=== PATIENT | female | born 1955 | race Caucasian/White ===

== ENCOUNTER 2018-01-16 11:06 | Inpatient (IN) | payer MEDICAID ==
[~2018-01-16] VITALS: Ht 157.5 cm; Wt 69.3 kg
[2018-01-16 11:43] LABS: INTERNATIONAL NORMALIZED RATIO 1.71 (0.93-1.1); PROTHROMBIN TIME 17.6 Seconds (9.6-11.5)
[2018-01-16 11:45] LABS: ALANINE AMINOTRANSFERASE 75 U/L (12-78); ALBUMIN 2.1 g/dL (3.4-5.0); ANION GAP 7 mmol/L (5-15); CALCIUM 7.7 mg/dL (8.5-10.1); CHLORIDE 103 mmol/L (98-107)
[2018-01-16 11:50] LABS: ALKALINE PHOSPHATASE 153 U/L (45-117); BILIRUBIN,TOTAL 4.6 mg/dL (0.2-1.0); CREATININE 0.39 mg/dL (0.55-1.02); TROPONIN I < 0.015 ng/mL (0.000-0.045)
[2018-01-16 11:56] LABS: BASOPHILS # (AUTO) 0.01 x10^3/uL (0-0.1); BASOPHILS % (AUTO) 0 % (0-1); EOSINOPHILS # (AUTO) 0.12 x10^3/uL (0-0.4); EOSINOPHILS % (AUTO) 3 % (1-7); LYMPHOCYTES # (AUTO) 0.83 x10^3/uL (1-3.4); LYMPHOCYTES % (AUTO) 23 % (22-44); MD SCAN; MEAN CORPUSCULAR HEMOGLOBIN 42.2 pg (27.0-34.8); MEAN CORPUSCULAR HGB CONC 33.9 g/dL (32.4-35.8); MEAN CORPUSCULAR VOLUME 124.5 fL (80-100); MEAN PLATELET VOLUME 8.5 fL (7.4-10.4); MONOCYTES # (AUTO) 0.56 x10^3/uL (0.2-0.8); MONOCYTES % (AUTO) 15 % (2-9); NEUTROPHILS # (AUTO) 2.17 x10^3/uL (1.8-6.8); NEUTROPHILS % (AUTO) 59 % (42-75); PLATELET COUNT 51 x10^3/uL (130-400); RED BLOOD COUNT 3.14 x10^6/uL (3.82-5.3); RED CELL DISTRIBUTION WIDTH 17.6 % (9.6-15.2)
[2018-01-16] MEDS ORDERED: FUROSEMIDE 40 MG/4 ML IV ONE (12:00)
[2018-01-16] MEDS ORDERED: FUROSEMIDE 40 MG/4 ML ONE (12:07)
[2018-01-16] MEDS ORDERED: PLEASE ENTER ALLERGIES MC SCH (12:30)
[2018-01-16] MEDS ORDERED: HYDR-3240 PO (13:52)
[2018-01-16] MEDS ORDERED: TRAZ50TA18 PO (13:52)
[2018-01-16] MEDS ORDERED: MONT10TA9 PO (13:52)
[2018-01-16] MEDS ORDERED: SOY1TABL2 PO (13:52)
[2018-01-16] MEDS ORDERED: COLE1TAB2 PO (13:52)
[2018-01-16] MEDS ORDERED: FURO-93 PO (13:52)
[2018-01-16] MEDS ORDERED: POT25TAB PO (13:52)
[2018-01-16] MEDS ORDERED: PANT40TA5 PO (13:52)
[2018-01-16] MEDS ORDERED: ALBU8.5H8 INH (13:52)
[2018-01-16 14:12] VITALS: BP 147/76
[2018-01-16] MEDS ORDERED: LABETALOL 5MG/ML, 20ML IVPush PRN (16:00)
[2018-01-16] MEDS ORDERED: ONDANSETRON ODT 4 MG PO PRN (16:00)
[2018-01-16] MEDS ORDERED: POLYETHYLENE GLYCOL 17 GM PACKET PO PRN (16:00)
[2018-01-16] MEDS ORDERED: HEPARIN 5,000 UNITS/ML, 1ML SQ SCH (16:00)
[2018-01-16] MEDS ORDERED: ONDANSETRON 2MG/ML, 2ML IVPush PRN (16:00)
[2018-01-16] MEDS ORDERED: POTASSIUM CHLORIDE 20 MEQ TAB.ER.PRT PO ONE ×2 (16:30→22:00)
[2018-01-16] MEDS ORDERED: LACTULOSE 20 GM/30 ML UDC PO PRN (16:30)
[2018-01-16] MEDS: ALBUTEROL SULFATE 2.5 MG/3 ML NPPB SCH ×2 (16:30→20:40)
[2018-01-16] MEDS: methylPREDNISolone SOD SUCC 125 MG/2 ML IVPush SCH (17:51)
[2018-01-16] MEDS: FUROSEMIDE 20 MG/2 ML IV SCH (17:51)
[2018-01-16] MEDS ORDERED: ALBUTEROL/IPRATROPIUM 2.5MG/0.5MG, 3 ML NPPB PRN (18:00)
[2018-01-16 18:03] LABS: TROPONIN I < 0.015 ng/mL (0.000-0.045)
[2018-01-16 18:19] LABS: MEAN CORPUSCULAR HGB CONC 33.6 g/dL (32.4-35.8); MEAN CORPUSCULAR VOLUME 124.8 fL (80-100); MEAN PLATELET VOLUME 8.1 fL (7.4-10.4); RED BLOOD COUNT 3.17 x10^6/uL (3.82-5.3); RED CELL DISTRIBUTION WIDTH 17.5 % (9.6-15.2)
[2018-01-16 18:20] LABS: MD YES
[2018-01-16 18:23] LABS: EOS#(MANUAL) 0.17 x10^3/uL (0.0-0.4); EOS% (MANUAL) 4 % (1-7); LYMPH#(MANUAL) 0.76 x10^3/uL (1-3.4); LYMPHS% (MANUAL) 18 % (22-44); MONOS% (MANUAL) 12 % (2-9); SEG#(MANUAL) 2.77 x10^3/uL (1.8-6.8); SEGS% (MANUAL) 66 % (42-75)
[2018-01-16 18:24] LABS: <PLATELET ESTIMATE> DECREASED; <PLT MORPHOLOGY> NORMAL PLT MORPH; ANISOCYTOSIS 1+; POLYCHROMASIA 1+
[2018-01-16 18:29] LABS: PLATELET COUNT 49 x10^3/uL (130-400)
[2018-01-16 19:00] LABS: % IRON SATURATION 82 % (20-55); IRON LEVEL 156 mcg/dL (50-170); TOTAL IRON BINDING CAPACITY 191 mcg/dL (250-450)
[2018-01-16 19:04] LABS: FREE T4 (FREE THYROXINE) 1.17 ng/dL (0.76-1.46); TROPONIN I < 0.015 ng/mL (0.000-0.045)
[2018-01-16 19:10] VITALS: BP 126/78
[2018-01-16 19:25] LABS: FOLATE LEVEL 13.6 ng/mL (3.1-17.5)
[2018-01-16] MEDS: TRAZODONE 50MG TABLET PO SCH (20:22)
[2018-01-16] MEDS: COLESTIPOL 1 GM TABLET PO SCH (20:30)
[2018-01-16] MEDS ORDERED: MAGNESIUM SULFATE IN WATER 50 ML IV ONE (21:30)
[2018-01-16] MEDS ORDERED: PRAV20TA2 PO (22:00)
[2018-01-16] MEDS ORDERED: CARV12.52 PO (22:00)
[2018-01-17] MEDS: methylPREDNISolone SOD SUCC 125 MG/2 ML IVPush SCH ×5 (00:08→23:45)
[2018-01-17 00:12] LABS: TROPONIN I < 0.015 ng/mL (0.000-0.045)
[2018-01-17 03:40] VITALS: BP 116/60
[2018-01-17 05:34] LABS: CHLORIDE 104 mmol/L (98-107)
[2018-01-17 05:43] LABS: ALANINE AMINOTRANSFERASE 68 U/L (12-78); ALKALINE PHOSPHATASE 113 U/L (45-117); ANION GAP 6 mmol/L (5-15); BILIRUBIN,TOTAL 4.9 mg/dL (0.2-1.0); CALCIUM 8.1 mg/dL (8.5-10.1); CREATININE 0.36 mg/dL (0.55-1.02); TOTAL PROTEIN 5.8 g/dL (6.4-8.2)
[2018-01-17 06:36] VITALS: BP 158/81
[2018-01-17] MEDS: ALBUTEROL SULFATE 2.5 MG/3 ML NPPB SCH ×2 (07:52→19:05)
[2018-01-17] MEDS ORDERED: REGADENOSON 0.4 MG/5 ML SYRINGE ONE (08:54)
[2018-01-17] MEDS: SENNA/DOCUSATE TABLET PO SCH (09:00)
[2018-01-17] MEDS ORDERED: [UNRECOGNIZED DRUG - OTHER] PO SCH (09:00)
[2018-01-17] MEDS ORDERED: ALBUTEROL SULFATE 2.5 MG/3 ML NPPB SCH (09:00)
[2018-01-17 12:55] VITALS: BP 145/80
[2018-01-17] MEDS: FUROSEMIDE 20 MG/2 ML IV SCH ×2 (13:30→19:52)
[2018-01-17] MEDS: COLESTIPOL 1 GM TABLET PO SCH ×2 (13:30→19:51)
[2018-01-17] MEDS: MONTELUKAST 10 MG TABLET PO SCH (13:31)
[2018-01-17] MEDS: PANTOPROZOLE 40MG TABLET PO SCH (13:31)
[2018-01-17] MEDS: LACTULOSE 20 GM/30 ML UDC PO SCH ×2 (16:34→19:53)
[2018-01-17] MEDS: HYDROcodone/APAP 5/325 TABLET PO PRN ×2 (17:31→22:17)
[2018-01-17 19:37] VITALS: BP 146/77
[2018-01-17] MEDS: TRAZODONE 50MG TABLET PO SCH (19:52)
[2018-01-17] MEDS: RIFAXIMIN 550 MG TABLET PO SCH (19:53)
[2018-01-18 02:22] VITALS: BP 119/62
[2018-01-18 05:16] LABS: ALANINE AMINOTRANSFERASE 65 U/L (12-78); ANION GAP 7 mmol/L (5-15); CALCIUM 7.9 mg/dL (8.5-10.1); CHLORIDE 101 mmol/L (98-107); CREATININE 0.57 mg/dL (0.55-1.02)
[2018-01-18 05:19] LABS: ALKALINE PHOSPHATASE 130 U/L (45-117); BILIRUBIN,TOTAL 3.9 mg/dL (0.2-1.0); TOTAL PROTEIN 5.7 g/dL (6.4-8.2)
[2018-01-18] MEDS: methylPREDNISolone SOD SUCC 125 MG/2 ML IVPush SCH (05:37)
[2018-01-18 05:50] LABS: MEAN CORPUSCULAR HEMOGLOBIN 41.6 pg (27.0-34.8); MEAN CORPUSCULAR HGB CONC 33.5 g/dL (32.4-35.8); MEAN CORPUSCULAR VOLUME 124.1 fL (80-100); MEAN PLATELET VOLUME 8.6 fL (7.4-10.4); RED BLOOD COUNT 2.94 x10^6/uL (3.82-5.3)
[2018-01-18 05:52] LABS: PLATELET COUNT 49 x10^3/uL (130-400)
[2018-01-18 05:53] LABS: BASOPHILS # (AUTO) 0.01 x10^3/uL (0-0.1); BASOPHILS % (AUTO) 0 % (0-1); EOSINOPHILS % (AUTO) 0 % (1-7); LYMPHOCYTES # (AUTO) 0.56 x10^3/uL (1-3.4); LYMPHOCYTES % (AUTO) 9 % (22-44); MD SCAN; MONOCYTES # (AUTO) 0.31 x10^3/uL (0.2-0.8); MONOCYTES % (AUTO) 5 % (2-9); NEUTROPHILS # (AUTO) 5.45 x10^3/uL (1.8-6.8); NEUTROPHILS % (AUTO) 86 % (42-75)
[2018-01-18] MEDS ORDERED: POTASSIUM CHLORIDE 20 MEQ TAB.ER.PRT PO ONE ×2 (07:00)
[2018-01-18] MEDS: ALBUTEROL SULFATE 2.5 MG/3 ML NPPB SCH ×2 (07:25→20:44)
[2018-01-18 07:30] VITALS: BP 134/75
[2018-01-18] MEDS: LACTULOSE 20 GM/30 ML UDC PO SCH ×3 (08:56→20:30)
[2018-01-18] MEDS: PANTOPROZOLE 40MG TABLET PO SCH (08:57)
[2018-01-18] MEDS: FUROSEMIDE 20 MG/2 ML IV SCH ×2 (08:57→20:30)
[2018-01-18] MEDS: HYDROcodone/APAP 5/325 TABLET PO PRN ×3 (08:57→20:38)
[2018-01-18] MEDS: RIFAXIMIN 550 MG TABLET PO SCH ×2 (08:58→20:30)
[2018-01-18] MEDS: MONTELUKAST 10 MG TABLET PO SCH (08:58)
[2018-01-18] MEDS: COLESTIPOL 1 GM TABLET PO SCH ×2 (08:58→20:30)
[2018-01-18] MEDS: SPIRONOLACTONE 50 MG TABLET PO SCH (08:58)
[2018-01-18] MEDS: SENNA/DOCUSATE TABLET PO SCH (08:58)
[2018-01-18] MEDS ORDERED: POTASSIUM CHLORIDE 20 MEQ TAB.ER.PRT ONE (11:41)
[2018-01-18 14:00] VITALS: BP 130/70
[2018-01-18 20:13] VITALS: BP 126/68
[2018-01-18] MEDS: TRAZODONE 50MG TABLET PO SCH (20:30)
[2018-01-19 01:34] VITALS: BP 142/77
[2018-01-19 05:11] LABS: MEAN CORPUSCULAR HEMOGLOBIN 42.5 pg (27.0-34.8); MEAN CORPUSCULAR HGB CONC 33.8 g/dL (32.4-35.8); MEAN CORPUSCULAR VOLUME 125.9 fL (80-100); MEAN PLATELET VOLUME 8.9 fL (7.4-10.4); PLATELET COUNT 50 x10^3/uL (130-400); RED CELL DISTRIBUTION WIDTH 18.5 % (9.6-15.2)
[2018-01-19 05:12] LABS: ALBUMIN 1.9 g/dL (3.4-5.0); ANION GAP 4 mmol/L (5-15); CHLORIDE 102 mmol/L (98-107)
[2018-01-19 05:14] LABS: CREATININE 0.48 mg/dL (0.55-1.02)
[2018-01-19 05:41] LABS: BASOPHILS # (AUTO) 0.01 x10^3/uL (0-0.1); BASOPHILS % (AUTO) 0 % (0-1); EOSINOPHILS # (AUTO) 0.01 x10^3/uL (0-0.4); EOSINOPHILS % (AUTO) 0 % (1-7); LYMPHOCYTES % (AUTO) 16 % (22-44); MD SCAN; MONOCYTES # (AUTO) 0.96 x10^3/uL (0.2-0.8); MONOCYTES % (AUTO) 14 % (2-9); NEUTROPHILS % (AUTO) 71 % (42-75)
[2018-01-19 06:40] VITALS: BP 147/85
[2018-01-19] MEDS: ALBUTEROL SULFATE 2.5 MG/3 ML NPPB SCH (07:10)
[2018-01-19] MEDS ORDERED: MAGNESIUM SULFATE PMX 2GM/50ML 50 ML IV ONE ×2 (07:30→12:00)
[2018-01-19] MEDS ORDERED: ALBUMIN HUMAN 25% 100 ML IV ONE (07:30)
[2018-01-19] MEDS: SENNA/DOCUSATE TABLET PO SCH (09:00)
[2018-01-19] MEDS ORDERED: FUROSEMIDE 40 MG/4 ML IV SCH (09:00)
[2018-01-19] MEDS: LACTULOSE 20 GM/30 ML UDC PO SCH ×2 (09:16→15:57)
[2018-01-19] MEDS: COLESTIPOL 1 GM TABLET PO SCH (09:16)
[2018-01-19] MEDS: SPIRONOLACTONE 50 MG TABLET PO SCH (09:17)
[2018-01-19] MEDS: RIFAXIMIN 550 MG TABLET PO SCH (09:18)
[2018-01-19] MEDS: MONTELUKAST 10 MG TABLET PO SCH (09:18)
[2018-01-19] MEDS: PANTOPROZOLE 40MG TABLET PO SCH (09:19)
[2018-01-19] MEDS: HYDROcodone/APAP 5/325 TABLET PO PRN (10:53)
[2018-01-19] MEDS ORDERED: RIFA550T4 PO (11:55)
[2018-01-19] MEDS ORDERED: LACT20SO13 PO (11:55)
[2018-01-19] MEDS ORDERED: FURO40TA6 PO (11:55)
[2018-01-19] MEDS ORDERED: SPIR50TA PO (11:55)
[2018-01-19] MEDS ORDERED: PRED10TA PO (11:58)
[2018-01-19 13:45] VITALS: BP 129/71
== END 2018-01-19 16:35 | disposition home or self-care (01) | DRG 291 ==
LOC: ED 13:00 → EDIP 13:01 → ED 13:40 → 4EST 14:04 → DCLOUNGE 01-19 16:17
PROVIDERS: ADMIT Hospitalist; ATTEND Hospitalist
DX: I11.0 Hypertensive heart disease with heart failure (principal); E43 Unspecified severe protein-calorie malnutrition; J96.01 Acute respiratory failure with hypoxia; J44.1 Chronic obstructive pulmonary disease with (acute) exacerbation; I50.33 Acute on chronic diastolic (congestive) heart failure; D69.59 Other secondary thrombocytopenia; D75.89 Other specified diseases of blood and blood-forming organs; E78.5 Hyperlipidemia, unspecified; E87.6 Hypokalemia; F17.200 Nicotine dependence, unspecified, uncomplicated; K72.90 Hepatic failure, unspecified without coma; K74.60 Unspecified cirrhosis of liver; Z80.1 Family history of malignant neoplasm of trachea, bronchus and lung; Z82.5 Family history of asthma and other chronic lower respiratory diseases; Z87.01 Personal history of pneumonia (recurrent); Z68.27 Body mass index [BMI] 27.0-27.9, adult
CPT/HCPCS: 0399T; 36415; 71045; 78452; 80048; 80053; 82040; 82140; 82607; 82728; 82746; 83540; 83550; 83690; 83735; 83880; 84100; 84439; 84443; 84484; 85025; 85610; 93005; 93017; 93306; 93970; 94640; 96374; J1940; J2785; J7613; P9047; A9502; C9898; J2930; J3475; J7512